=== PATIENT | male | born 1935 | race Caucasian/White ===

== ENCOUNTER 2020-08-13 12:08 | Emergency (ER) | payer MEDICARE, OTHER ==
[2020-08-13 13:37] LABS: HEMOGLOBIN 13.6 gm/dl (14.0-17.5); RED BLOOD COUNT 4.36 M/UL (4.20-5.50); WHITE BLOOD COUNT 8.3 K/UL (4.5-11.0)
[2020-08-13] MEDS ORDERED: KEPPRA500 MG PO (16:52)
[2020-08-13] MEDS ORDERED: OXYGEN (16:52)
== END 2020-08-13 18:10 | disposition home or self-care (01) ==
LOC: ER1 12:08
PROVIDERS: Physician Assistant Medical
DX: G93.89 Other specified disorders of brain (principal); J96.91 Respiratory failure, unspecified with hypoxia; F01.50 Vascular dementia, unspecified severity, without behavioral disturbance, psychotic disturbance, mood disturbance, and anxiety; U07.1 COVID-19; I10 Essential (primary) hypertension; E03.9 Hypothyroidism, unspecified; F32.9 Major depressive disorder, single episode, unspecified; Z79.899 Other long term (current) drug therapy; Z66 Do not resuscitate
CPT/HCPCS: 36600; 70450; 71045; 80053; 81001; 82803; 83605; 85025; 87040; 87086; 96365; 96376; 99285; J1953; J7030; U0002

== ENCOUNTER → 2020-09-26 | Outpatient (CLI) | payer MEDICARE, OTHER ==
[~2020-09-26] MED LIST: KEPPRA500 MG PO; OXYGEN
== END ==
LOC: KOH-I 09-25 14:30
DX: G93.6 Cerebral edema (principal)
CPT/HCPCS: 70450

== ENCOUNTER 2020-11-02 14:09 | Emergency (ER) | payer MEDICARE, OTHER ==
[2020-11-02 16:31] LABS: HEMOGLOBIN 12.8 gm/dl (14.0-17.5); RED BLOOD COUNT 3.97 M/UL (4.20-5.50); WHITE BLOOD COUNT 9.7 K/UL (4.5-11.0)
[2020-11-02 16:59] LABS: BUN/CREATININE RATIO 22 (0-10)
== END 2020-11-02 17:34 | disposition home or self-care (01) ==
LOC: ER1 14:09
PROVIDERS: Preventive Medicine Occupational Medicine
DX: E86.0 Dehydration (principal); I10 Essential (primary) hypertension; Z86.73 Personal history of transient ischemic attack (TIA), and cerebral infarction without residual deficits
CPT/HCPCS: 70450; 71045; 80053; 80307; 81001; 82140; 83605; 83690; 85025; 85652; 86140; 87086; 96365; 99285; J0696; J7030

== ENCOUNTER 2021-07-11 14:30 | Emergency (ER) | payer MEDICARE, OTHER ==
[2021-07-11 15:46] LABS: HEMOGLOBIN 13.1 gm/dl (14.0-17.5); RED BLOOD COUNT 4.21 M/UL (4.20-5.50); WHITE BLOOD COUNT 6.6 K/UL (4.5-11.0)
[2021-07-11] MEDS ORDERED: CEFUROXIME500 MG PO (17:49)
== END 2021-07-11 23:10 | disposition home or self-care (01) ==
LOC: ER1 14:30
PROVIDERS: Preventive Medicine Occupational Medicine
DX: N39.0 Urinary tract infection, site not specified (principal); Z86.73 Personal history of transient ischemic attack (TIA), and cerebral infarction without residual deficits; Z20.822 Contact with and (suspected) exposure to COVID-19
CPT/HCPCS: 36600; 51701; 70450; 71045; 80053; 81001; 82550; 82553; 82803; 83605; 83690; 83874; 83880; 84484; 85025; 85610; 85652; 85730; 86140; 87086; 93005; 96374; 99285; J0696; J7030; U0002